=== PATIENT | female | born 1985 | race Caucasian/White ===

== ENCOUNTER 2017-01-07 11:18 | Emergency (ER) | payer BC, OTHER ==
--- NOTE | 2017-01-07 11:51 | Emergency Department Record ---
History of Present Illness - General Chief Complaint: Fall Injury Stated Complaint: ANKLE INJURY Time Seen by Provider: 01/07/17 11:47 Source: Patient Mode of Arrival: Wheelchair Limitations: No limitations - History of Present Illness Initial Comments: 31 yo female presents to ED following a [id number] walking down stairs while at work. Patient reports injury to the left medial ankle, states she heard a "crunch". Patient denies health problems at her baseline, denies other injury. MD Complaint: Fall Onset/Timin -: Minutes(s) Fall From: Down stairs (#) When Fall Occurred: Just prior to arrival Fall Witnessed: No Place Fall Occurred: Work Loss of Consciousness: None Prolonged Down Time?: No Symptoms Prior to Fall: None Location - Extremities: Left: Ankle Severity: Mild Severity scale (1-10): 3 Quality: Aching Context: Tripped/slipped Associated Symptoms: Denies - [place] Coma Scale Eye Response: (4) Open spontaneously Motor Response: (6) Obeys commands Verbal Response: (5) Oriented [place] Total: 15 - Related Data Home Medications Medication Instructions Recorded Confirmed Last Taken Bupropion HCl [Wellbutrin Sr] 300 mg PO DAILY 12/01/15 01/07/17 Unknown Cetirizine HCl [Zyrtec] 10 mg PO QD tab 12/01/15 01/07/17 Unknown Sertraline HCl [Zoloft] 50 mg PO QHS tab 12/01/15 01/07/17 Unknown Sumatriptan Succinate [Imitrex] 25 mg PO ASDIR 06/20/16 01/07/17 Unknown Tizanidine HCl [Zanaflex] 2 mg PO ASDIR 06/20/16 01/07/17 Unknown Levonorgestrel [Mirena] 1 each IY CONT each 09/26/16 01/07/17 Unknown Alprazolam [Alprazolam] 0.5 mg PO ASDIR 01/07/17 01/07/17 Unknown Allergies Allergy/AdvReac Type Severity Reaction Status Date / Time levofloxacin [From Levaquin] Allergy muscle/joint Unverified 09/26/16 17:22 pain Travel Screening - Travel/Exposure Within Last 30 Days Have you traveled within the last 30 days?: No Review of Systems Constitutional: Denies: Chills, Fever, Malaise Eyes: Denies: Eye discharge, Eye pain ENT: Denies: Congestion, Ear pain Respiratory: Denies: Cough, Dyspnea Cardiovascular: Denies: Chest pain, Dyspnea on exertion Endocrine: Denies: Fatigue, Heat or cold intolerance Gastrointestinal: Denies: Abdominal pain, Nausea, Vomiting Genitourinary: Denies: Dysuria, Frequency, Hematuria Musculoskeletal: Reports: Arthralgia. Denies: Back pain, Gout, Joint swelling Skin: Denies: Bruising, Change in color Neurological: Denies: Abnormal gait, Confusion, Seizure, Tingling Psychiatric: Denies: Anxiety Hematological/Lymphatic: Denies: Anemia, Blood Clots Past Medical History - SOCIAL HISTORY Smoking Status: Never smoker Alcohol Use: Occassional Drug Use: None - RESPIRATORY Hx Respiratory Disorders: No - CARDIOVASCULAR Hx Cardio Disorders: No - NEURO Hx Neuro Disorders: Yes Hx Headaches: Yes - GI Hx GI Disorders: No - Hx Genitourinary Disorders: No - ENDOCRINE Hx Endocrine Disorders: No - MUSCULOSKELETAL Hx Musculoskeletal Disorders: No - PSYCH Hx Psych Problems: Yes Hx Anxiety: Yes Hx Depression: Yes - HEMATOLOGY/ONCOLOGY Hx Hematology/Oncology Disorders: No Family Medical History Any Significant Family History?: No Physical Exam - General General Appearance: Alert, Oriented x3, Cooperative Limitations: No limitations - Head Head exam: negative: Atraumatic, Normocephalic, Normal inspection Head exam detail: negative: Abrasion, Contusion, Harris's sign, General tenderness, Hematoma, Laceration - Eye Eye exam: Normal appearance. negative: Conjunctival injection, Periorbital swelling, Periorbital tenderness, Scleral icterus - ENT Ear exam: negative: Auricular hematoma, Auricular trauma Nasal Exam: negative: Active bleeding, Discharge, Dried blood, Foreign body Mouth exam: negative: Drooling, Laceration, Muffled voice, Tongue elevation - Neck Neck exam: Normal inspection. negative: Meningismus, Tenderness - Respiratory Respiratory exam: Normal lung sounds bilaterally. negative: Rales, Respiratory distress, Rhonchi, Stridor - Cardiovascular Cardiovascular Exam: Regular rate, Normal rhythm, Normal heart sounds - GI/Abdominal GI/Abdominal exam: Soft. negative: Rebound, Rigid, Tenderness - Rectal Rectal exam: Deferred - exam: Deferred - Extremities Extremities exam: Tenderness (TTP along the medial ankle, no STS or ecchymosis present, achilles intact, no proximal fibular pain on examination). negative: Calf tenderness, Pedal edema - Back Back exam: Denies: CVA tenderness (R), CVA tenderness (L) - Neurological Neurological exam: Alert, Normal gait, Oriented X3 - Psychiatric Psychiatric exam: Normal affect, Normal mood - Skin Skin exam: Normal color. negative: Abrasion Type of lesion: negative: abrasion Course Vital Signs 01/07/17 11:21 Temperature 98.4 F Pulse Rate 94 H Respiratory 18 Rate Blood Pressure 118/108 Pulse Ox 95 - Reevaluation(s) Reevaluation #1: 01/07/17 12:09 Left ankle: No acute fracture or dislocation Patient was updated on her radiology results, has declined ibuprofen for her pain symptoms, but is unable to bear weight currently. Will d/c home with air splint and crutches for ambulation support. Patient appears stable for discharge at this time. Disposition Disposition: Discharge Clinical Impression: Injury of left ankle Qualifiers: Encounter type: initial encounter Qualified Code(s): S99.912A - Unspecified injury of left ankle, initial encounter Disposition: Home, Self-Care Condition: (2) Stable Instructions: Ankle Sprain (ED) Additional Instructions: Return to ED if your symptoms worsen or if you have any concerns. Ice and Ibuprofen as needed for your pain symptoms. Follow-up with employee health in 1-3 days as directed. Forms: Patient Portal Access Time of Disposition: 12:11
== END 2017-01-07 12:20 | disposition home or self-care (01) ==
LOC: ER 11:18
DX: S99.912A Unspecified injury of left ankle, initial encounter (principal); W10.9XXA Fall (on) (from) unspecified stairs and steps, initial encounter; Y92.239 Unspecified place in hospital as the place of occurrence of the external cause; Y99.0 Civilian activity done for income or pay
CPT/HCPCS: 99283

== ENCOUNTER 2017-11-09 19:29 | Emergency (ER) | payer BC ==
[2017-11-09] MEDS ORDERED: METHYLPREDNISOLONE PF 125MG/VIAL IVP ONE (19:38)
--- NOTE | 2017-11-09 19:44 | Emergency Department Record ---
History of Present Illness - General Chief complaint: Allergic Reaction Stated complaint: ALERGIC REACTION Time Seen by Provider: 11/09/17 19:38 Source: Patient Mode of Arrival: Ambulatory Limitations: No limitations - History of Present Illness Initial Comments: 32 yo female presents to ED for evaluation of possible allergic reaction. Patient states that she started valcyclovir for cold sores this morning, noted mild hives around 4-5 hours later that has worsened this evening. Patient reports taking Benadryl x 2 today as well as ranitidine 2 hours ago for her symptoms without significant improvement. Patient denies history reactions previously, denies difficulty in breathing but does report "sore throat" symptoms without swelling. MD Complaint: Allergic reaction Onset/Timin -: Hour(s) Exposure: Medication Symptoms: Itching, Rash Severity: Moderate Treatment Prior to Arrival: Benadryl Previous Allergy History: None - Related Data Previous Rx's Medication Instructions Recorded Prednisone [Prednisone 20Mg] 20 mg PO TID #15 tab 11/09/17 Allergies Allergy/AdvReac Type Severity Reaction Status Date / Time levofloxacin [From Levaquin] Allergy muscle/joint Verified 11/09/17 19:57 pain valacyclovir Allergy HIVES Verified 11/09/17 19:57 Travel Screening - Travel/Exposure Within Last 30 Days Have you traveled within the last 30 days?: No - Travel/Exposure Within Last Year Have you traveled outside the [place] in the last year?: No - Additonal Travel Details Have you been exposed to anyone with a communicable illness?: No - Travel Symptoms Symptom Screening: None Review of Systems Constitutional: Denies: Chills, Fever, Malaise, Night sweats Eyes: Denies: Eye discharge, Eye pain ENT: Denies: Congestion, Ear pain, Epistaxis Respiratory: Denies: Cough, Dyspnea Cardiovascular: Denies: Chest pain, Dyspnea on exertion Endocrine: Denies: Fatigue, Heat or cold intolerance Gastrointestinal: Denies: Abdominal pain, Nausea, Vomiting Genitourinary: Denies: Incontinence, Retention Musculoskeletal: Denies: Arthralgia, Back pain, Gout, Joint swelling Skin: Reports: Rash. Denies: Bruising, Change in color Neurological: Denies: Abnormal gait, Confusion, Headache, Seizure Psychiatric: Denies: Anxiety Hematological/Lymphatic: Denies: Anemia, Blood Clots Past Medical History - SOCIAL HISTORY Smoking Status: Never smoker Alcohol Use: Occasional Drug Use: None - RESPIRATORY Hx Respiratory Disorders: No - CARDIOVASCULAR Hx Cardio Disorders: No - NEURO Hx Neuro Disorders: Yes Hx Headaches: Yes - GI Hx GI Disorders: No - Hx Genitourinary Disorders: No - ENDOCRINE Hx Endocrine Disorders: No - MUSCULOSKELETAL Hx Musculoskeletal Disorders: No - PSYCH Hx Psych Problems: Yes Hx Anxiety: Yes Hx Depression: Yes - HEMATOLOGY/ONCOLOGY Hx Hematology/Oncology Disorders: No Family Medical History Any Significant Family History?: No Physical Exam - General General Appearance: Alert, Oriented x3, Cooperative, Mild distress Limitations: No limitations - Head Head exam: Atraumatic, Normocephalic, Normal inspection Head exam detail: negative: Abrasion, Contusion, Harris's sign, General tenderness, Hematoma, Laceration - Eye Eye exam: Normal appearance. negative: Conjunctival injection, Periorbital swelling, Periorbital tenderness, Scleral icterus - ENT ENT exam: Normal orophraynx Ear exam: negative: Auricular hematoma, Auricular trauma Nasal Exam: negative: Active bleeding, Discharge, Dried blood, Foreign body Mouth exam: negative: Drooling, Laceration, Muffled voice, Tongue elevation - Neck Neck exam: Normal inspection. negative: Meningismus, Tenderness - Respiratory Respiratory exam: Normal lung sounds bilaterally. negative: Rales, Respiratory distress, Rhonchi, Stridor - Cardiovascular Cardiovascular Exam: Regular rate, Normal rhythm, Normal heart sounds - GI/Abdominal GI/Abdominal exam: Soft. negative: Rebound, Rigid, Tenderness - Rectal Rectal exam: Deferred - exam: Deferred - Extremities Extremities exam: Normal inspection. negative: Calf tenderness, Pedal edema, Tenderness - Back Back exam: Denies: CVA tenderness (R), CVA tenderness (L) - Neurological Neurological exam: Alert, Normal gait, Oriented X3 - Psychiatric Psychiatric exam: Normal affect, Normal mood - Skin Skin exam: Erythema, Rash, Urticaria Type of lesion: Rash. negative: abrasion Distribution of rash: Generalized Course Vital Signs 11/09/17 19:31 Temperature 97.6 F Pulse Rate 100 H Respiratory 18 Rate Blood Pressure 139/99 Pulse Ox 96 - Reevaluation(s) Reevaluation #1: 11/09/17 19:43 Patient took Benadryl 50 mg 30 minutes [employer], Ranitidine [address] an IV, administer solumedrol and observe. Patient does not have any acute airway complications, epinephrine does not appears indicated at this time. Reevaluation #2: 11/09/17 21:28 Patient reassessed, reports that she feels "dry", however allergic reaction symptoms have not worsened. Will infuse 1 liter LR and reassess. Reevaluation #3: 11/09/17 22:12 Patient was reassessed, facial erythema is greatly improved, patient reports that she is ready to go home at this time. Will d/c home on prednisone for recurrent urticaria symptoms. Disposition Disposition: Discharge Clinical Impression: Allergic reaction Qualifiers: Encounter type: initial encounter Qualified Code(s): T78.40XA - Allergy, unspecified, initial encounter Disposition: Home, Self-Care Condition: (2) Stable Instructions: General Allergic Reaction (ED) Additional Instructions: Return to ED if your symptoms worsen or if you have any concerns. Prednisone as directed. Follow-up with your family doctor in 3-5 days as directed. Prescriptions: Prednisone [Prednisone 20Mg] 20 mg PO TID #15 tab Forms: Patient Portal Access Time of Disposition: 22:13 Quality - Quality Measures Quality Measures: N/A - Blood Pressure Screening Does Patient Have Any of the Following: No Blood Pressure Classification: Hypertensive Reading Systolic Measurement: 139 Diastolic Measurement: 99 Screening for High Blood Pressure: < First Hypertensive BP, F/U Documented > [ G8950] First Hypertensive Follow-up Interventions: Referral to alternative/primary care provider.
[2017-11-09] MEDS ORDERED: 0.9 % SODIUM CHLORIDE 1000ML 1,000 ML IV ONE (19:47)
[2017-11-09] MEDS ORDERED: RINGERS SOLUTION,LACTATED 1,000 ML IV PRN (21:27)
== END 2017-11-09 22:22 | disposition home or self-care (01) ==
LOC: ER 19:29
DX: L27.1 Localized skin eruption due to drugs and medicaments taken internally (principal); T37.5X5A Adverse effect of antiviral drugs, initial encounter; J02.9 Acute pharyngitis, unspecified
CPT/HCPCS: 96374; 99284; J2930; J7030; J7120

== ENCOUNTER 2019-03-13 14:41 | Emergency (ER) | payer BC ==
--- NOTE | 2019-03-13 15:04 | Emergency Department Record ---
History of Present Illness - General Chief Complaint: Fall Injury Stated Complaint: FALL 3 STEPS/LT WRIST INJURY/HIP PAIN Time Seen by Provider: 03/13/19 14:49 Source: Patient Mode of Arrival: Ambulatory Limitations: No limitations - History of Present Illness Initial Comments: The patient is here due to a slip and fall down 3 wet steps at home about an hour ago. On the way down she did bang her L hand and wrist somehow and now has pain at the base of the thenar area of the L hand. She also did land on the L buttocks and hip and has mild pain with walking. There is no AP or back pain or lower leg pain. The patient did not hit her head or have any neck trauma. MD Complaint: Fall Onset/Timin -: Hour(s) Fall From: Down stairs (#) When Fall Occurred: [address] Fall Occurred: Home Loss of Consciousness: None Prolonged Down Time?: No Severity scale (1-10): 1 Quality: Aching Context: Alcohol use - [place] Coma Scale Eye Response: (4) Open spontaneously Motor Response: (6) Obeys commands Verbal Response: (5) Oriented [place] Total: 15 - Related Data Home Medications Medication Instructions Recorded Confirmed Last Taken Fluorometholone [Fml Forte] 10 ml OP BID 03/13/19 03/13/19 Unknown Minocycline HCl [Minocin] 50 mg PO DAILY 03/13/19 03/13/19 Unknown Montelukast Sodium [Singulair] 10 mg PO QHS 03/13/19 03/13/19 Unknown Allergies Allergy/AdvReac Type Severity Reaction Status Date / Time levofloxacin [From Levaquin] Allergy muscle/joint Verified 03/13/19 14:58 pain valacyclovir Allergy HIVES Verified 03/13/19 14:58 Travel Screening - Travel/Exposure Within Last 30 Days Have you traveled within the last 30 days?: No - Travel/Exposure Within Last Year Have you traveled outside the [place] in the last year?: No - Additonal Travel Details Have you been exposed to anyone with a communicable illness?: No - Travel Symptoms Symptom Screening: None Review of Systems Constitutional: Denies: Chills, Fever Past Medical History - SOCIAL HISTORY Smoking Status: Never smoker Alcohol Use: Rare Drug Use: None - RESPIRATORY Hx Respiratory Disorders: No - CARDIOVASCULAR Hx Cardio Disorders: No - NEURO Hx Neuro Disorders: Yes Hx Headaches: Yes - GI Hx GI Disorders: No - Hx Genitourinary Disorders: No - ENDOCRINE Hx Endocrine Disorders: No - MUSCULOSKELETAL Hx Musculoskeletal Disorders: No - PSYCH Hx Psych Problems: Yes Hx Anxiety: Yes Hx Depression: Yes - HEMATOLOGY/ONCOLOGY Hx Hematology/Oncology Disorders: No Family Medical History Any Significant Family History?: No Family Hx Comment (NOT TO BE USED IN PLACE OF ITEMS BELOW): sister thyroid disease. Hx Resp Disorders: Mother Physical Exam - General General Appearance: Alert, Cooperative, No acute distress - Head Head exam: Atraumatic, Normocephalic - Eye Eye exam: Normal appearance - GI/Abdominal GI/Abdominal exam: Soft, Normal bowel sounds. negative: Tenderness - Extremities Extremities exam: Full ROM, Tenderness (There is mild L buttock and posterior L hip tenderness. The L hip has normal ROM and the patient is up walking with no difficulty but does have very mild pain in the L hip. ), Other (There is tenderness to palpation over the base of the L 1st MC bone over the proximal thenar area. There is normal tendon funcion to the L hand with normal pulses.). negative: Normal inspection, Joint swelling - Back Back exam: Reports: Normal inspection, Full ROM. Denies: Muscle spasm, Paraspinal tenderness, Rash noted, Tenderness, Vertebral tenderness - Neurological Neurological exam: Alert, Normal gait. negative: Abnormal gait, Motor sensory deficit Course Vital Signs 03/13/19 14:45 Temperature 98.5 F Pulse Rate 87 Respiratory 20 Rate Blood Pressure 131/84 Pulse Ox 98 Disposition Disposition: Discharge Clinical Impression: Sprain of hand, left Qualifiers: Encounter type: initial encounter Qualified Code(s): S63.92XA - Sprain of unspecified part of left wrist and hand, initial encounter Disposition: Home, Self-Care Condition: (2) Stable Instructions: Hand Sprain (ED) Additional Instructions: Please ice and elevate the L hand and wrist when possible and take your home pain medicine. Wear the L wrist splint for a week. Please see your family doctor next week if not better and return to the ER for any worsening symptoms. Forms: Patient Portal Access Time of Disposition: 15:41 Quality - Quality Measures Quality Measures: N/A - Blood Pressure Screening View Details: Yes Does Patient Have Any of the Following: No Blood Pressure Classification: Pre-Hypertensive BP Reading Systolic Measurement: 123 Diastolic Measurement: 80 Screening for High Blood Pressure: < Pre-Hypertensive BP, F/U Documented > [G8950] Pre-Hypertensive Follow-up Interventions: Referral to alternative/primary care provider.
--- NOTE | 2019-03-15 13:48 | RADIOLOGY REPORT ---
EXAM: WRIST, LEFT 3 VIEWS HISTORY: ACUTE PAIN WITH SWELLING ON PALMAR SURFACE AT CARPAL TUNNEL SURGICAL SITE RADIATING TO PROXIMAL ASPECT OF LEFT THUMB. FALL EARLIER TODAY. TECHNIQUE: Four views of the left wrist. COMPARISON: None. ENCOUNTER: Initial. FINDINGS: There is normal bone mineralization. No acute fracture, dislocation, or destructive bone lesion is seen. The articular relations are maintained. No periarticular erosion. No focal soft tissue abnormality. IMPRESSION: NEGATIVE LEFT WRIST. JOB NUMBER: [id number] [facility]
== END 2019-03-13 15:50 | disposition home or self-care (01) ==
LOC: ER 14:41
DX: S63.8X2A Sprain of other part of left wrist and hand, initial encounter (principal); M25.552 Pain in left hip; W10.9XXA Fall (on) (from) unspecified stairs and steps, initial encounter; Y92.009 Unspecified place in unspecified non-institutional (private) residence as the place of occurrence of the external cause
CPT/HCPCS: 99283